=== PATIENT | male | born 1975 | race Caucasian/White ===

== ENCOUNTER 2019-02-10 08:59 | Inpatient (IN) | payer BC ==
[2019-02-10 09:38] VITALS: BMI 24.5
--- NOTE | 2019-02-10 10:49 | HP ---
"CIWA Score Nausea/Vomitin-Int. Nausea w/Dry Heave Muscle Tremors: 4-Moderate,w/Arms Extend Anxiety: 0-No Anxiety, at Ease Agitation: 2 Paroxysmal Sweats: 2 Orientation: 0-Oriented Tacttile Disturbances: 0-None Auditory Disturbances: 0-None Visual Disturbances: 0-None Headache: 0-None Present CIWA-Ar Total Score: 12 - Admission Criteria OASAS Guidelines: Admission for Medically Managed Detox: Requires at least one of the followin. CIWA greater than 12 2. Seizures within the past 24 hours 3. Delirium tremens within the past 24 hours 4. Hallucinations within the past 24 hours 5. Acute intervention needed for co occurring medical disorder 6. Acute intervention needed for co occurring psychiatric disorder 7. Severe withdrawal that cannot be handled at a lower level of care (continued vomiting, continued diarrhea, abnormal vital signs) requiring intravenous medication and/or fluids 8. Admission ROS [facility] Allergies/Adverse Reactions: Allergies Allergy/AdvReac Type Severity Reaction Status Date / Time No Known Allergies Allergy Verified 02/10/19 10:19 History of Present Illness: Search Terms: christopher blanchard, 1975 Search Date: 02/10/2019 10:42:28 AM The Drug Utilization Report below displays all of the controlled substance prescriptions, if any, that your patient has filled in the last twelve months. The information displayed on this report is compiled from pharmacy submissions to the Department, and accurately reflects the information as submitted by the pharmacies. This report was requested by: Jerri Michelle | Reference #: [id number] Others' Prescriptions Patient Name: Christopher Blanchard Date: 1975 Address: [address] [place] [address] Sex: Male Rx Written Rx Dispensed Drug Quantity Days Supply Prescriber Name 02/03/2019 02/03/2019 clonazepam 1 mg tablet 60 30 Destiny Stewart Patient Name: Christopher Blanchard Date: 1975 Address: [place] [address] Sex: Male Rx Written Rx Dispensed Drug Quantity Days Supply Prescriber Name 11/07/2018 11/08/2018 chlordiazepoxide 25 mg capsule 8 2 John Paul Anthony (CHIDI) pt here requesting detox from etoh use , reports 1 liter of vodka /day since 2 years ago after [facility] removed his son (currently age 6 ) from his care , starts drinking in the mornings , current JULIO CESAR 0.111 , reports tremors if not drinking, withdrawal seizure 1 yr ago , + blackouts, + falls while intoxicated . On MMTP since 2 years ago , currently 90 mg qd , first age of use 28 , denies IVDU , OD x 1 . denies recent heroin use . tobacco : 1/2 ppd denies other illicits PMHX : htn PSHx : r elbow surgery in childhood , jaw frx 2018 PSych : depression . denies Si / Hi . Exam Limitations: Clinical Condition, Intoxication - Ebola screening Have you traveled outside of the country in the last 21 days: No Have you had contact with anyone from an Ebola affected area: No Have you been sick,other than usual withdrawal symptoms: No Do you have a fever: No - Review of Systems Constitutional: Loss of Appetite EENT: reports: Other (denies vision loss , denies dysphagia) Respiratory: reports: No Symptoms reported Cardiac: reports: No Symptoms Reported GI: reports: See HPI : reports: No Symptoms Reported Musculoskeletal: reports: No Symptoms Reported Integumentary: reports: No Symptoms Reported Neuro: reports: See HPI Endocrine: reports: No Symptoms Reported Psychiatric: reports: Orientated x3, Anxious Patient History - Patient Medical History Hx Asthma: Yes Hx Depression: Yes (On Wellbutrin) - Patient Surgical History Hx Orthopedic Surgery: Yes (Right elbow , jaw sx) - PPD History Previous Implant?: No Documented Results: Positive w/o proof - Smoking Cessation Smoking history: Current every day smoker Aproximately how many cigarettes per day: 10 Hx Chewing Tobacco Use: No Initiated information on smoking cessation: No - Substances Abused Alcohol Route: Oral Frequency: Daily Amount used: Vodka - 1 liter Age of first use: 16 Date of Last Use: 02/10/19 Family Disease History - Family Disease History Family History: Denies (unsure) Admission Physical Exam S - Vital Signs Vital Signs: Vital Signs - 24 hr 02/10/19 09:33 Temperature 98.4 F Pulse Rate 83 Respiratory 18 Rate Blood Pressure 155/84 - Physical General Appearance: Yes: Alcohol on Breath, Intoxicated HEENTM: Yes: EOMI, Hearing grossly Normal, Normocephalic, Normal Voice Respiratory: Yes: Chest Non-Tender, Lungs Clear, Normal Breath Sounds Neck: Yes: No masses,lesions,Nodules, Trachea in good position Cardiology: Yes: Regular Rhythm, Regular Rate, S1, S2, Tachycardia Abdominal: Yes: Non Tender, Soft Back: Yes: Normal Inspection Musculoskeletal: Yes: full range of Motion, Gait Steady Extremities: Yes: Non-Tender, Tremors Neurological: Yes: Fully Oriented, Alert, Motor Strength 5/5 Integumentary: Yes: Dry - Diagnostic (1) Alcohol intoxication Current Visit: Yes Status: Acute Qualifiers: Complication of substance-induced condition: uncomplicated Qualified Code(s ): F10.920 - Alcohol use, unspecified with intoxication, uncomplicated (2) Alcohol abuse Current Visit: Yes Status: Acute (3) Opioid dependence on agonist therapy Current Visit: Yes Status: Chronic (4) Nicotine dependence Current Visit: Yes Status: Chronic Qualifiers: Nicotine product type: cigarettes BHS Breath Alcohol Content Breath Alcohol Content: 0.111 Urine Drug Screen - Results Drug Screen Negative: No Urine Drug Screen Results: BZO-Benzodiazepines, MTD-Methadone Inpatient Rehab Admission - Rehab Decision to Admit Inpatient rehab admission?: No"
[2019-02-10] MEDS ORDERED: ACETAMINOPHEN 325 MG TABLET (FP) PO PRN ×2 (10:56)
[2019-02-10] MEDS ORDERED: MAGNESIUM HYDROX 2400MG/30ML ORAL SUSPENSION 30 ML CUP PO PRN (10:56)
[2019-02-10] MEDS ORDERED: BISMUTH SUBSALICYLATE 524 MG/30 ML UD PO PRN (10:56)
[2019-02-10] MEDS ORDERED: IBUPROFEN 400 MG TABLET (FP) PO PRN (10:56)
[2019-02-10] MEDS ORDERED: MENTHOL/PHENOL 1 EACH UD MM PRN (10:56)
[2019-02-10] MEDS ORDERED: MAGNESIUM CITRATE 300 ML BOTTLE PO PRN (10:56)
[2019-02-10] MEDS ORDERED: MAG HYDROX/AL HYDROX/SIMETH 30 ML UNIT-DOSE CUP PO PRN (10:56)
[2019-02-10] MEDS ORDERED: NICOTINE POLACRILEX 2 MG GUM BUC PRN (10:56)
[2019-02-10] MEDS ORDERED: ALBUTEROL SO4 0.083% IH SOL 2.5 MG/3 ML VIAL.NEB. NEB PRN (10:58)
[2019-02-10] MEDS: chlordiazePOXIDE HCL 25 MG CAPSULE PO PRN ×2 (12:36→19:49)
[2019-02-10] MEDS ORDERED: cloNIDine HCL 0.1 MG TABLET PO ONE (13:15)
--- NOTE | 2019-02-10 13:19 | PN ---
[facility] Progress Note Note: PATIENT'S BP IN [facility] PATIENT [facility]: 155/84. PATIENT'S BP AT TIME OF ARRIVAL TO UNIT: 166/97. PATIENT REPORTS HISTORY OF ELEAVTED BP, BUT ONLY AT TIMES IN PAST WHILE IN WITHDRAWAL, PATIENT DENIES HISTORY OF HYPERTENSION ASIDE FROM WHEN IN WITHDRAWAL. PATIENT DENIES KNOWN HISTORY OF ANTI-HYPERTENSIVE MEDICATION IN PAST. PATIENT ASYMPTOMATIC, DENIES, CHEST PAIN AND PAIN RADIATING DOWN LEFT ARM OR INTO NECK. CLONIDINE, 0.1 MG PO BID ORDERED. Yessi COLMENARES NP
--- NOTE | 2019-02-10 15:02 | CONSULT ---
[facility] Psychiatric Consult - Data Date of interview: 02/10/19 Admission source: [facility] Identifying data: First admission to [facility] for this 43 y/o male self-referred for detoxification (opioid, alcohol). 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 Substance Abuse History: Confirmed by the patient in this interview. Details in current [facility] report : Smoking history: Current every day smoker. Aproximately how many cigarettes per day: 10. Hx Chewing Tobacco Use: No. Initiated information on smoking cessation: Yes. - Substances Abused. Alcohol. Route : Oral. Frequency: Daily. Amount used: Vodka - 1 liter. Age of first use: 16. Date of Last Use: 02/10/19 Medical History: Remarkable for past orthosurgery for fracture of left lower mandible and right elbow. Psychiatric History: No reported history of psychiatric hospitalizations. Patient is currently on methadone maintenance (90 mg/day) at the [facility] MMTP program in the [place]. Mr Dickerson is also seeing a private psychiatrist to address depression + anxiety. Prescribed wellbutrin XL 150 mg/ day + clonazepam (dose not recalled). Patient denies history of suicide attempts. Physical/Sexual Abuse/Trauma History: Stressors : loss of child's custody (son was removed by [facility]), poverty, lack of vocational skills and addictions. Additional Comment: Urine Drug Screen Results: BZO-Benzodiazepines, MTD- Methadone. Noted. Mental Status Exam - Mental Status Exam Alert and Oriented to: Time, Place, Person Cognitive Function: Good Patient Appearance: Well Groomed (obese) Mood: Withdrawn Affect: Mood Congruent, Constricted Patient Behavior: Fatigued, Appropriate, Cooperative Speech Pattern: Clear (bilingual) Voice Loudness: Normal Thought Process: Goal Oriented Thought Disorder: Not Present Hallucinations: Denies Suicidal Ideation: Denies Homicidal Ideation: Denies Insight/Judgement: Poor Sleep: Well Appetite: Good Muscle strength/Tone: Normal Gait/Station: Normal Psychiatric Findings - Problem List (Garden 1, 2,3) (1) Opioid dependence on agonist therapy Current Visit: Yes Status: Chronic (2) Alcohol dependence Current Visit: Yes Status: Chronic (3) Nicotine dependence Current Visit: Yes Status: Chronic Qualifiers: Nicotine product type: cigarettes (4) Substance induced mood disorder Current Visit: Yes Status: Chronic (5) History of depression Current Visit: Yes Status: Chronic Comment: On medications. - Initial Treatment Plan Initial Treatment Plan: Psychoeducation. Sleep hygiene. Detoxification in progress. Support. Wellbutrin XL 150 mg po daily (patient's specific request). Side effects/benefits discussed with the patient. Consent (verbal) granted to MD. Garcia.
[2019-02-10] MEDS: chlordiazePOXIDE HCL 25 MG CAPSULE PO SCH ×2 (17:11→22:15)
[2019-02-10] MEDS: THIAMINE HCL 100 MG TABLET (FP) PO SCH (22:15)
[2019-02-10] MEDS: cloNIDine HCL 0.1 MG TABLET PO SCH (22:15)
[2019-02-10] MEDS: MELATONIN 5 MG TABLETS PO PRN (22:15)
[2019-02-11] MEDS ORDERED: METHADONE HCL 40 MG DISPERSABLE TABLET ONE (04:47)
[2019-02-11] MEDS ORDERED: METHADONE HCL 10 MG TABLET ONE (04:47)
[2019-02-11] MEDS: METHADONE 80 MG, METHADONE 10 MG PO SCH (05:05)
[2019-02-11] MEDS: chlordiazePOXIDE HCL 25 MG CAPSULE PO SCH ×2 (05:06→10:15)
[2019-02-11] MEDS ORDERED: METHADONE HCL 10 MG TABLET PO SCH (06:00)
[2019-02-11] MEDS: PRENATAL VITAMINS W/ FOLIC ACID TABLET (FP) PO SCH (10:14)
[2019-02-11] MEDS: cloNIDine HCL 0.1 MG TABLET PO SCH ×2 (10:14→22:07)
[2019-02-11 10:57] LABS: ALBUMIN 4.7 g/dl (3.4-5.0); ALK PHOS 198 U/L (45-117); ANION GAP 11 MMOL/L (8-16); BILIRUBIN,TOTAL 3.1 mg/dL (0.2-1); BLOOD UREA NITROGEN 16 mg/dL (7-18); CHLORIDE 97 mmol/L (98-107); CO2 27 mmol/L (21-32); GLUCOSE,RANDOM 110 mg/dL (74-106); POTASSIUM 4.4 mmol/L (3.5-5.1); SGOT/AST 286 U/L (15-37); SGPT/ALT 262 U/L (13-61); SODIUM 136 mmol/L (136-145); TOT PROT 8.1 g/dl (6.4-8.2)
[2019-02-11 11:18] LABS: HEMATOCRIT 38.6 % (35.4-49); HEMOGLOBIN 13.3 GM/dL (11.7-16.9); MCH 32.6 pg (25.7-33.7); MCHC 34.4 g/dl (32.0-35.9); MEAN CELL VOLUME 94.9 fl (80-96); MEAN PLT VOLUME 8.1 fl (7.5-11.1); PLATELET COUNT 213 K/MM3 (134-434); RBC 4.07 M/mm3 (4.00-5.60); RDW 13.3 % (11.9-15.9); WHITE BLOOD COUNT 3.4 K/mm3 (4.0-10.0)
[2019-02-11] MEDS ORDERED: LORazepam 1 MG TABLET PO PRN (15:19)
--- NOTE | 2019-02-11 15:24 | PN ---
S CIWA - CIWA Score Nausea/Vomitin Muscle Tremors: 3 Anxiety: 0-No Anxiety, at Ease Agitation: 0-Normal Activity Paroxysmal Sweats: 3 Orientation: 0-Oriented Tacttile Disturbances: 1-Very Mild Itch/Numbness Auditory Disturbances: 2-Mild Harshness/Frighten Visual Disturbances: 2-Mild Sensitivity Headache: 0-None Present CIWA-Ar Total Score: 14 S Progress Note (SOAP) Subjective: Tremors, Sweating, Body Aches. Objective: PATIENT A & O X 3, OBSERVED AMBULATING ON UNIT. IN NO ACUTE DISTRESS. 02/11/19 15:17 Vital Signs Temperature 98.5 F 02/11/19 13:39 Pulse Rate 69 02/11/19 13:39 Respiratory Rate 18 02/11/19 13:39 Blood Pressure 124/79 02/11/19 13:39 O2 Sat by Pulse Oximetry (%) Laboratory Tests 02/11/19 02/11/19 02/11/19 05:40 05:40 05:40 WBC 3.4 L RBC 4.07 Hgb 13.3 Hct 38.6 MCV 94.9 MCH 32.6 MCHC 34.4 RDW 13.3 Plt Count 213 MPV 8.1 Sodium 136 Potassium 4.4 Chloride 97 L Carbon Dioxide 27 Anion Gap 11 BUN 16 Creatinine 1.0 Creat Clearance w eGFR 81.55 Random Glucose 110 H Calcium 9.0 Total Bilirubin 3.1 H AST 286 H ALT 262 H Alkaline Phosphatase 198 H Total Protein 8.1 Albumin 4.7 RPR Titer Nonreactive LABS NOTED. Assessment: 02/11/19 15:23 WITHDRAWAL SYMPTOMS. ELEVATED LIVER ENZYMES. LEUKOPENIA. 02/11/19 15:24 Plan: CONTINUE DETOX. INCREASE DAILY PO FLUID INTAKE. CHANGE FROM LIBRIUM DETOX PROTOCOL TO ATIVAN DETOX PROTOCOL DUE TO SIGNIFICANTLY ELEVATED ADMISSION LIVER ENZYMES. HFP ORDERED FOR 02/13/2019.
[2019-02-11] MEDS ORDERED: chlordiazePOXIDE HCL 25 MG CAPSULE PO SCH (17:00)
[2019-02-11] MEDS: LORazepam 1 MG TABLET PO SCH ×2 (17:42→22:07)
[2019-02-11] MEDS: MELATONIN 5 MG TABLETS PO PRN (22:07)
[2019-02-11] MEDS: THIAMINE HCL 100 MG TABLET (FP) PO SCH (22:07)
[2019-02-12] MEDS ORDERED: METHADONE HCL 40 MG DISPERSABLE TABLET ONE (03:39)
[2019-02-12] MEDS ORDERED: METHADONE HCL 10 MG TABLET ONE (03:39)
[2019-02-12] MEDS: METHADONE 80 MG, METHADONE 10 MG PO SCH (05:38)
[2019-02-12] MEDS: LORazepam 1 MG TABLET PO SCH ×2 (05:38→10:05)
[2019-02-12] MEDS: PRENATAL VITAMINS W/ FOLIC ACID TABLET (FP) PO SCH (10:04)
[2019-02-12] MEDS: cloNIDine HCL 0.1 MG TABLET PO SCH ×2 (10:04→22:02)
--- NOTE | 2019-02-12 11:22 | PN ---
S CIWA - CIWA Score Nausea/Vomitin-No Nausea/No Vomiting Muscle Tremors: 2 Anxiety: 2 Agitation: 1-Slight > Activity Paroxysmal Sweats: 1-Minimal Palms Moist Orientation: 2-Disoriented Date<2 days Tacttile Disturbances: 0-None Auditory Disturbances: 0-None Visual Disturbances: 0-None Headache: 1-Very Mild CIWA-Ar Total Score: 9 S Progress Note (SOAP) Subjective: doing well social with peers in day room patient is prescribed with klonopin for anxiety patient preferring return to klonopin provider la[facility] medical and mental issues Objective: 02/12/19 11:23 Vital Signs Temperature 96.7 F L 02/12/19 09:56 Pulse Rate 114 H 02/12/19 09:56 Respiratory Rate 18 02/12/19 09:56 Blood Pressure 99/69 02/12/19 09:56 O2 Sat by Pulse Oximetry (%) Laboratory Last Values WBC 3.4 K/mm3 (4.0-10.0) L 02/11/19 05:40 RBC 4.07 M/mm3 (4.00-5.60) 02/11/19 05:40 Hgb 13.3 GM/dL (11.7-16.9) 02/11/19 05:40 Hct 38.6 % (35.4-49) 02/11/19 05:40 MCV 94.9 fl (80-96) 02/11/19 05:40 MCH 32.6 pg (25.7-33.7) 02/11/19 05:40 MCHC 34.4 g/dl (32.0-35.9) 02/11/19 05:40 RDW 13.3 % (11.9-15.9) 02/11/19 05:40 Plt Count 213 K/MM3 (134-434) 02/11/19 05:40 MPV 8.1 fl (7.5-11.1) 02/11/19 05:40 Sodium 136 mmol/L (136-145) 02/11/19 05:40 Potassium 4.4 mmol/L (3.5-5.1) 02/11/19 05:40 Chloride 97 mmol/L (98-107) L 02/11/19 05:40 Carbon Dioxide 27 mmol/L (21-32) 02/11/19 05:40 Anion Gap 11 MMOL/L (8-16) 02/11/19 05:40 BUN 16 mg/dL (7-18) 02/11/19 05:40 Creatinine 1.0 mg/dL (0.55-1.3) 02/11/19 05:40 Creat Clearance w eGFR 81.55 (>60) 02/11/19 05:40 Random Glucose 110 mg/dL (74-106) H 02/11/19 05:40 Calcium 9.0 mg/dL (8.5-10.1) 02/11/19 05:40 Total Bilirubin 3.1 mg/dL (0.2-1) H 02/11/19 05:40 AST 286 U/L (15-37) H 02/11/19 05:40 ALT 262 U/L (13-61) H 02/11/19 05:40 Alkaline Phosphatase 198 U/L (45-117) H 02/11/19 05:40 Total Protein 8.1 g/dl (6.4-8.2) 02/11/19 05:40 Albumin 4.7 g/dl (3.4-5.0) 02/11/19 05:40 RPR Titer Nonreactive (NONREACTIVE) 02/11/19 05:40 02/12/19 11:24 lab oted ast elevation continue ativan alcohol detox regimen repeat ast 02/13/19 02/12/19 11:25 discuss alcohol misuse related liver insults Assessment: 02/12/19 11:24 alcohol withdrawal sx 02/12/19 11:25 ast elevation Plan: continue detox repeat ast continue ativan
[2019-02-12] MEDS ORDERED: LORazepam 0.5 MG TABLET PO PRN (15:19)
[2019-02-12] MEDS ORDERED: chlordiazePOXIDE HCL 10 MG CAPSULE PO PRN (17:00)
[2019-02-12] MEDS ORDERED: chlordiazePOXIDE HCL 10 MG CAPSULE PO SCH (17:00)
[2019-02-12] MEDS: LORazepam 0.5 MG TABLET PO SCH ×2 (17:17→22:02)
[2019-02-12] MEDS: THIAMINE HCL 100 MG TABLET (FP) PO SCH (22:02)
[2019-02-12] MEDS: MELATONIN 5 MG TABLETS PO PRN (22:03)
[2019-02-13] MEDS ORDERED: METHADONE HCL 40 MG DISPERSABLE TABLET ONE (04:42)
[2019-02-13] MEDS ORDERED: METHADONE HCL 10 MG TABLET ONE (04:42)
[2019-02-13] MEDS: METHADONE 80 MG, METHADONE 10 MG PO SCH (05:02)
[2019-02-13] MEDS: LORazepam 0.5 MG TABLET PO SCH (05:02)
--- NOTE | 2019-02-13 08:34 | DS ---
[facility] Detox Discharge Summary Admission Date: 02/10/19 Discharge Date: 02/13/19 - History Present History: Alcohol Dependence Additional Comments: 43 years old male admitted on 02/10/19 for alcohol withdrawal stabilizaion completed detox regimen aftercare [facility] Pertinent Past History: encourage the patient to keep medication list in wallet bring in medication list and bottles of medication to follow up appointment - Physical Exam Results Vital Signs: Vital Signs Temperature 97.3 F L 02/13/19 05:50 Pulse Rate 63 02/13/19 05:50 Respiratory Rate 18 02/13/19 06:28 Blood Pressure 106/65 02/13/19 05:50 O2 Sat by Pulse Oximetry (%) Pertinent Admission Physical Exam Findings: alcohol withdrawal sx Laboratory Last Values WBC 3.4 K/mm3 (4.0-10.0) L 02/11/19 05:40 RBC 4.07 M/mm3 (4.00-5.60) 02/11/19 05:40 Hgb 13.3 GM/dL (11.7-16.9) 02/11/19 05:40 Hct 38.6 % (35.4-49) 02/11/19 05:40 MCV 94.9 fl (80-96) 02/11/19 05:40 MCH 32.6 pg (25.7-33.7) 02/11/19 05:40 MCHC 34.4 g/dl (32.0-35.9) 02/11/19 05:40 RDW 13.3 % (11.9-15.9) 02/11/19 05:40 Plt Count 213 K/MM3 (134-434) 02/11/19 05:40 MPV 8.1 fl (7.5-11.1) 02/11/19 05:40 Sodium 136 mmol/L (136-145) 02/11/19 05:40 Potassium 4.4 mmol/L (3.5-5.1) 02/11/19 05:40 Chloride 97 mmol/L (98-107) L 02/11/19 05:40 Carbon Dioxide 27 mmol/L (21-32) 02/11/19 05:40 Anion Gap 11 MMOL/L (8-16) 02/11/19 05:40 BUN 16 mg/dL (7-18) 02/11/19 05:40 Creatinine 1.0 mg/dL (0.55-1.3) 02/11/19 05:40 Creat Clearance w eGFR 81.55 (>60) 02/11/19 05:40 Random Glucose 110 mg/dL (74-106) H 02/11/19 05:40 Calcium 9.0 mg/dL (8.5-10.1) 02/11/19 05:40 Total Bilirubin 3.1 mg/dL (0.2-1) H 02/11/19 05:40 AST 286 U/L (15-37) H 02/11/19 05:40 ALT 262 U/L (13-61) H 02/11/19 05:40 Alkaline Phosphatase 198 U/L (45-117) H 02/11/19 05:40 Total Protein 8.1 g/dl (6.4-8.2) 02/11/19 05:40 Albumin 4.7 g/dl (3.4-5.0) 02/11/19 05:40 RPR Titer Nonreactive (NONREACTIVE) 02/11/19 05:40 lab noted strong recommend the patient bring in lab result to [facility] provider follow up with liver enzyme elevation health teaching on alcohol related ast elevation and risks involved - Treatment Hospital Course: Detox Protocol Followed, Detoxed Safely, Responded well, Discharged Condition Good, Rehab Referral Accepted Patient has Accepted a Rehab Referral to: [facility] - Medication Discharge Medications: Ambulatory Orders Albuterol Sulfate Inhaler - [Ventolin HFA Inhaler -] 1 - 2 inh PO Q4H 03/22/18 Bupropion HCl [Wellbutrin Xl -] 150 mg PO DAILY 02/10/19 clonazePAM [Klonopin -] 0.5 mg PO DAILY 02/10/19 - AMA Did Patient Leave Against Medical Advice: No
[2019-02-13 09:17] VITALS: BP 107/69; PULSE 74; TEMP 98.6
[2019-02-13] MEDS ORDERED: chlordiazePOXIDE HCL 10 MG CAPSULE PO SCH (17:00)
== END 2019-02-13 09:17 | disposition home or self-care (01) | DRG 773 ==
LOC: YASAS 08:59 → Y3N 11:13
PROVIDERS: ADMIT Surgery; ATTEND Surgery
PROC: HZ2ZZZZ Detoxification Services for Substance Abuse Treatment (ICD-10-PCS; principal; 2019-02-09)
DX: F10.230 Alcohol dependence with withdrawal, uncomplicated (principal); F11.20 Opioid dependence, uncomplicated; F17.210 Nicotine dependence, cigarettes, uncomplicated; F19.24 Other psychoactive substance dependence with psychoactive substance-induced mood disorder; F32.9 Major depressive disorder, single episode, unspecified; R94.5 Abnormal results of liver function studies; R74.8 Abnormal levels of other serum enzymes; D72.819 Decreased white blood cell count, unspecified; Z59.0 Homelessness
CPT/HCPCS: 36415; 71045-TC-FY; 80053; 85027; 86593; J0735

== ENCOUNTER 2019-07-10 11:15 | Inpatient (IN) | payer BC ==
[2019-07-10 14:38] VITALS: BMI 25.7
--- NOTE | 2019-07-10 16:26 | HP ---
CIWA Score Nausea/Vomitin-Int. Nausea w/Dry Heave Muscle Tremors: 3 Anxiety: 3 Agitation: 2 Paroxysmal Sweats: 2 Orientation: 0-Oriented Tacttile Disturbances: 0-None Auditory Disturbances: 0-None Visual Disturbances: 0-None Headache: 0-None Present CIWA-Ar Total Score: 14 - Admission Criteria OASAS Guidelines: Admission for Medically Managed Detox: Requires at least one of the followin. CIWA greater than 12 2. Seizures within the past 24 hours 3. Delirium tremens within the past 24 hours 4. Hallucinations within the past 24 hours 5. Acute intervention needed for co occurring medical disorder 6. Acute intervention needed for co occurring psychiatric disorder 7. Severe withdrawal that cannot be handled at a lower level of care (continued vomiting, continued diarrhea, abnormal vital signs) requiring intravenous medication and/or fluids 8. Admission ROS [facility] - HPI Allergies/Adverse Reactions: Allergies Allergy/AdvReac Type Severity Reaction Status Date / Time No Known Allergies Allergy Verified 07/10/19 14:22 History of Present Illness: 43 yo with asthma, h/o anxiety and panic attacks, ran out of money yesterday- could not get alcohol- went into withdrawal with nausea/vomiting and the shakes - went to [facility]-did not get any meds- referred here for further management. On methadone MAT 90mg/day. h/o pos PPD, h/o INH for 9 months alcohol- 1 liter vodka/day, last seizure a few months ago, no DT's Last use of IV heroin- wednesday, on methadone Benzo- gets 2mg Klonopin a day from PCP for anxiety/panic ambien- for sleep, DUR- klonopin/ambien Utox: opioids, MTD - Ebola screening Have you traveled outside of the country in the last 21 days: No Have you had contact with anyone from an Ebola affected area: No - Review of Systems Constitutional: Other (nausea and vomiting) EENT: reports: Other Respiratory: reports: No Symptoms reported Cardiac: reports: No Symptoms Reported GI: reports: Nausea, Vomiting : reports: No Symptoms Reported Musculoskeletal: reports: No Symptoms Reported Integumentary: reports: No Symptoms Reported Neuro: reports: No Symptoms reported Endocrine: reports: No Symptoms Reported Hematology: reports: No Symptoms Reported Psychiatric: reports: No Sypmtoms Reported Patient History - Patient Medical History Hx Asthma: Yes Hx Depression: Yes (On Wellbutrin) Other Medical History: anxiety/panic attacks - Patient Surgical History Hx Orthopedic Surgery: Yes (Right elbow , jaw sx) - Smoking Cessation Smoking history: Current every day smoker Aproximately how many cigarettes per day: 10 Hx Chewing Tobacco Use: No Initiated information on smoking cessation: Yes 'Breaking Loose' booklet given: 07/10/19 - Substance & Tx. History Substance Use Type: Alcohol, Tranquilizers - Substances abused Alcohol Substance route: Oral Frequency: Daily Amount used: 1 liter of vodka Age of first use: 15 Date of last use: 07/10/19 Family Disease History - Family Disease History Family Disease History: Other: Mother (alcohol) Admission Physical Exam BHS - Vital Signs Vital Signs: Vital Signs - 24 hr 07/10/19 14:21 Temperature 99.2 F Pulse Rate 89 Respiratory 20 Rate Blood Pressure 165/100 - Physical General Appearance: Yes: Within Normal Limits, Moderate Distress HEENTM: Yes: Within Normal Limits Respiratory: Yes: Within Normal Limits Neck: Yes: Within Normal Limits Cardiology: Yes: Within Normal Limits Abdominal: Yes: Within Normal Limits Back: Yes: Within Normal Limits Musculoskeletal: Yes: Within Normal Limits Extremities: Yes: Within Normal Limits Neurological: Yes: Within Normal Limits Integumentary: Yes: Track Teran Inpatient Rehab Admission - Rehab Decision to Admit Inpatient rehab admission?: No
[2019-07-10] MEDS ORDERED: chlordiazePOXIDE HCL 25 MG CAPSULE PO PRN (16:33)
[2019-07-10] MEDS ORDERED: MAGNESIUM HYDROX 2400MG/30ML ORAL SUSPENSION 30 ML CUP PO PRN (16:34)
[2019-07-10] MEDS ORDERED: ONDANSETRON *ODT* 4 MG TABLET SL PRN (16:34)
[2019-07-10] MEDS ORDERED: IBUPROFEN 400 MG TABLET (FP) PO PRN (16:34)
[2019-07-10] MEDS ORDERED: METHOCARBAMOL 500 MG TABLET PO PRN (16:34)
[2019-07-10] MEDS ORDERED: ACETAMINOPHEN 325 MG TABLET (FP) PO PRN ×2 (16:34)
[2019-07-10] MEDS ORDERED: MAGNESIUM CITRATE 300 ML BOTTLE PO PRN (16:34)
[2019-07-10] MEDS ORDERED: BISMUTH SUBSALICYLATE 524 MG/30 ML UD PO PRN (16:34)
[2019-07-10] MEDS ORDERED: MELATONIN 5 MG TABLETS PO PRN (16:34)
[2019-07-10] MEDS ORDERED: MAG HYDROX/AL HYDROX/SIMETH 30 ML UNIT-DOSE CUP PO PRN (16:34)
[2019-07-10] MEDS ORDERED: MENTHOL/PHENOL 1 EACH UD MM PRN (16:34)
[2019-07-10] MEDS ORDERED: hydrOXYzine PAMOATE 25 MG CAPSULE (FP) PO PRN (16:34)
[2019-07-10] MEDS ORDERED: NICOTINE POLACRILEX 2 MG GUM BUC PRN (16:34)
[2019-07-10] MEDS ORDERED: cloNIDine HCL 0.1 MG TABLET PO PRN (16:35)
[2019-07-10] MEDS ORDERED: ALBUTEROL SO4 8 GM HFA INHALER IH PRN (16:36)
[2019-07-10] MEDS ORDERED: METHADONE HCL 10 MG TABLET PO ONE (16:38)
[2019-07-10] MEDS ORDERED: METHADONE 80 MG, METHADONE 10 MG PO ONE (18:00)
[2019-07-10] MEDS ORDERED: chlordiazePOXIDE HCL 25 MG CAPSULE PO ONE (18:00)
[2019-07-10] MEDS ORDERED: METHADONE HCL 10 MG TABLET ONE (18:13)
[2019-07-10] MEDS ORDERED: METHADONE HCL 40 MG DISPERSABLE TABLET ONE (18:14)
[2019-07-10] MEDS: THIAMINE HCL 100 MG TABLET (FP) PO SCH (22:27)
[2019-07-10] MEDS: chlordiazePOXIDE HCL 25 MG CAPSULE PO SCH (22:27)
[2019-07-11] MEDS ORDERED: METHADONE HCL 10 MG TABLET ONE (04:42)
[2019-07-11] MEDS ORDERED: METHADONE HCL 40 MG DISPERSABLE TABLET ONE (04:43)
[2019-07-11] MEDS: METHADONE 80 MG, METHADONE 10 MG PO SCH (05:17)
[2019-07-11] MEDS: chlordiazePOXIDE HCL 25 MG CAPSULE PO SCH ×4 (05:17→22:23)
[2019-07-11] MEDS ORDERED: METHADONE HCL 10 MG TABLET PO SCH (06:00)
[2019-07-11] MEDS ORDERED: NICOTINE 14 MG/24 HOURS TOPICAL PATCH TD SCH (10:00)
[2019-07-11] MEDS ORDERED: busPIRone HCL 10 MG TABLET (FP) PO SCH (10:00)
[2019-07-11] MEDS ORDERED: PRENATAL VITAMINS W/ FOLIC ACID TABLET (FP) PO SCH (10:00)
[2019-07-11 10:59] LABS: ALBUMIN 4.4 g/dl (3.4-5.0); BILIRUBIN,TOTAL 4.4 mg/dL (0.2-1); CALCIUM 9.8 mg/dL (8.5-10.1); CREATININE 0.8 mg/dL (0.55-1.3); POTASSIUM 3.9 mmol/L (3.5-5.1); TOT PROT 7.7 g/dl (6.4-8.2)
[2019-07-11 11:06] LABS: HEMATOCRIT 43.4 % (35.4-49); HEMOGLOBIN 14.4 GM/dL (11.7-16.9); MCH 30.6 pg (25.7-33.7); MCHC 33.3 g/dl (32.0-35.9); MEAN CELL VOLUME 91.9 fl (80-96); PLATELET COUNT 194 K/MM3 (134-434); RBC 4.73 M/mm3 (4.00-5.60); RDW 13.2 % (11.9-15.9); WHITE BLOOD COUNT 3.2 K/mm3 (4.0-10.0)
--- NOTE | 2019-07-11 11:18 | PN ---
S CIWA - CIWA Score Nausea/Vomitin-No Nausea/No Vomiting Muscle Tremors: 4-Moderate,w/Arms Extend Anxiety: 4-Mod. Anxious/Guarded Agitation: 4-Moderately Restless Paroxysmal Sweats: 3 Orientation: 0-Oriented Tacttile Disturbances: 0-None Auditory Disturbances: 0-None Visual Disturbances: 0-None Headache: 0-None Present CIWA-Ar Total Score: 15 BHS Progress Note (SOAP) Subjective: nausea sweats shakes chills interrupted sleep body aches Objective: 07/11/19 11:17 Vital Signs Temperature 97.7 F 07/11/19 09:35 Pulse Rate 75 07/11/19 09:35 Respiratory Rate 18 07/11/19 09:35 Blood Pressure 165/105 H 07/11/19 09:35 O2 Sat by Pulse Oximetry (%) Laboratory Tests 07/11/19 07/11/19 07:50 07:50 WBC 3.2 L RBC 4.73 Hgb 14.4 Hct 43.4 MCV 91.9 MCH 30.6 MCHC 33.3 RDW 13.2 Plt Count 194 MPV 8.0 Sodium 137 Potassium 3.9 Chloride 96 L Carbon Dioxide 32 Anion Gap 9 BUN 16.0 Creatinine 0.8 Est GFR (CKD-EPI)AfAm 126.81 Est GFR (CKD-EPI)NonAf 109.41 Random Glucose 89 Calcium 9.8 Total Bilirubin 4.4 H AST 185 H ALT 199 H Alkaline Phosphatase 201 H Total Protein 7.7 Albumin 4.4 labs noted elevated BP elevated ast/alt aaox3 ambulating no acute distress Assessment: 07/11/19 11:18 withdrawal sx Plan: continue detox increase fluids d/c tylenol repeats labs zofran prn clonidine 0.1 mg prn
--- NOTE | 2019-07-11 13:37 | EKG ---
Test Reason : Blood Pressure : / mmHG Vent. Rate : 085 BPM Atrial Rate : 085 BPM P-R Int : 140 ms QRS Dur : 080 ms QT Int : 384 ms P-R-T Axes : 071 082 057 degrees QTc Int : 456 ms NORMAL SINUS RHYTHM POSSIBLE LEFT ATRIAL ENLARGEMENT BORDERLINE ECG NO PREVIOUS ECGS AVAILABLE Confirmed by MD ABBIE, VANGIE ([id number]) on 07/11/2019 1:36:42 PM Referred By: Confirmed By:VANGIE LEIVA MD
[2019-07-11] MEDS ORDERED: RANITIDINE HCL 150 MG TABLET (FP) PO SCH (22:00)
[2019-07-11] MEDS: THIAMINE HCL 100 MG TABLET (FP) PO SCH (22:23)
[2019-07-12] MEDS ORDERED: METHADONE HCL 10 MG TABLET ONE (04:34)
[2019-07-12] MEDS ORDERED: METHADONE HCL 40 MG DISPERSABLE TABLET ONE (04:34)
[2019-07-12] MEDS ORDERED: chlordiazePOXIDE HCL 25 MG CAPSULE PO SCH (05:00)
[2019-07-12] MEDS: METHADONE 80 MG, METHADONE 10 MG PO SCH (05:22)
[2019-07-12 08:02] VITALS: BP 135/93; PULSE 55; TEMP 97.2
--- NOTE | 2019-07-12 09:15 | PN ---
S Progress Note Note: pt was admitted in withdrawals c/o of withdrawals sx and aggressive symptomatic management attempted however, pt in spite of extensive motivational counseling regarding DT's, seizures, relapse and or loss, pt chose to sign out AMA.
--- NOTE | 2019-07-12 09:24 | DS ---
[facility] Detox Discharge Summary Admission Date: 07/10/19 - History Present History: Alcohol Dependence, Opioid Dependence - Physical Exam Results Vital Signs: Vital Signs Temperature 97.2 F L 07/12/19 08:01 Pulse Rate 55 L 07/12/19 08:01 Respiratory Rate 18 07/12/19 08:01 Blood Pressure 135/93 07/12/19 08:01 O2 Sat by Pulse Oximetry (%) Pertinent Admission Physical Exam Findings: pt arrived in withdrawal Laboratory Tests 07/11/19 07/11/19 07/11/19 07:50 07:50 07:50 WBC 3.2 L RBC 4.73 Hgb 14.4 Hct 43.4 MCV 91.9 MCH 30.6 MCHC 33.3 RDW 13.2 Plt Count 194 MPV 8.0 Sodium 137 Potassium 3.9 Chloride 96 L Carbon Dioxide 32 Anion Gap 9 BUN 16.0 Creatinine 0.8 Est GFR (CKD-EPI)AfAm 126.81 Est GFR (CKD-EPI)NonAf 109.41 Random Glucose 89 Calcium 9.8 Total Bilirubin 4.4 H AST 185 H ALT 199 H Alkaline Phosphatase 201 H Total Protein 7.7 Albumin 4.4 RPR Titer Nonreactive pt made aware of his elevated liver enzymes. a repeated lab was ordered but pt chose to sign out today AMA. copy of report provided to pt and advised to see his PCP and or go to ED if - Treatment Hospital Course: Discharged Condition Good Patient has Accepted a Rehab Referral to: declined rehab; referral provided - Medication Discharge Medications: Ambulatory Orders Albuterol Sulfate Inhaler - [Ventolin HFA Inhaler -] 1 - 2 inh PO Q4H PRN Bupropion HCl [Wellbutrin Xl -] 150 mg PO DAILY 02/10/19 Buspirone HCl [Buspar -] 10 mg PO DAILY 07/10/19 Ranitidine HCl [Zantac] 150 mg PO DAILY 07/10/19 - Diagnosis (1) Alcohol abuse Current Visit: Yes Status: Chronic (2) Alcohol intoxication Current Visit: Yes Status: Chronic Qualifiers: Complication of substance-induced condition: uncomplicated Qualified Code(s ): F10.920 - Alcohol use, unspecified with intoxication, uncomplicated (3) Elevated liver enzymes Current Visit: No Status: Acute (4) Alcohol dependence Current Visit: Yes Status: Chronic Qualifiers: Substance use status: uncomplicated Qualified Code(s): F10.20 - Alcohol dependence, uncomplicated (5) History of depression Current Visit: No Status: Chronic (6) Nicotine dependence Current Visit: Yes Status: Chronic Qualifiers: Nicotine product type: cigarettes Substance use status: uncomplicated Qualified Code(s): F17.210 - Nicotine dependence, cigarettes, uncomplicated (7) Opioid dependence on agonist therapy Current Visit: No Status: Chronic (8) Substance induced mood disorder Current Visit: No Status: Chronic - AMA Did Patient Leave Against Medical Advice: Yes
[2019-07-13] MEDS ORDERED: chlordiazePOXIDE HCL 10 MG CAPSULE PO PRN
[2019-07-13] MEDS ORDERED: chlordiazePOXIDE HCL 10 MG CAPSULE PO SCH (05:00)
[2019-07-14] MEDS ORDERED: chlordiazePOXIDE HCL 10 MG CAPSULE PO SCH (05:00)
[2019-07-15] MEDS ORDERED: chlordiazePOXIDE HCL 10 MG CAPSULE PO ONE (05:00)
== END 2019-07-12 09:13 | disposition left against medical advice (07) | DRG 770 ==
LOC: YASAS 11:15 → Y6N 17:35
PROVIDERS: ADMIT Surgery; ATTEND Surgery
PROC: HZ2ZZZZ Detoxification Services for Substance Abuse Treatment (ICD-10-PCS; principal; 2019-07-10)
DX: F10.230 Alcohol dependence with withdrawal, uncomplicated (principal); F10.220 Alcohol dependence with intoxication, uncomplicated; F11.20 Opioid dependence, uncomplicated; F17.210 Nicotine dependence, cigarettes, uncomplicated; F19.24 Other psychoactive substance dependence with psychoactive substance-induced mood disorder; R94.5 Abnormal results of liver function studies
CPT/HCPCS: 36415; 80053; 85027; 86593; 93005; 93010; J0735

== ENCOUNTER 2021-09-14 09:00 | Inpatient (IN) | payer BC ==
[2021-09-14 09:20] VITALS: BMI 24.8
[2021-09-14] MEDS ORDERED: METHOCARBAMOL 500 MG TABLET PO PRN (11:02)
[2021-09-14] MEDS ORDERED: MAGNESIUM CITRATE 300 ML BOTTLE PO PRN (11:02)
[2021-09-14] MEDS ORDERED: MAGNESIUM HYDROX 2400MG/30ML ORAL SUSPENSION 30 ML CUP PO PRN (11:02)
[2021-09-14] MEDS ORDERED: IBUPROFEN 400 MG TABLET (FP) PO PRN (11:02)
[2021-09-14] MEDS ORDERED: BISMUTH SUBSALICYLATE 524 MG/30 ML PO PRN (11:02)
[2021-09-14] MEDS ORDERED: MENTHOL/PHENOL 1 EACH UD MM PRN (11:02)
[2021-09-14] MEDS ORDERED: NICOTINE 10 MG CARTRIDGE (INHALER) IH PRN (11:02)
[2021-09-14] MEDS ORDERED: MAG HYDROX/AL HYDROX/SIMETH 30 ML UNIT-DOSE CUP PO PRN (11:02)
[2021-09-14] MEDS ORDERED: ONDANSETRON *ODT* 4 MG TABLET SL PRN (11:02)
[2021-09-14] MEDS ORDERED: ACETAMINOPHEN 325 MG TABLET (FP) PO PRN ×2 (11:02)
[2021-09-14] MEDS ORDERED: diazePAM 5 MG TABLET PO PRN (11:02)
[2021-09-14] MEDS ORDERED: diazePAM 5 MG TABLET ONE (11:47)
[2021-09-14] MEDS: diazePAM 5 MG TABLET PO SCH ×3 (11:50→22:38)
[2021-09-14] MEDS: BACITRACIN 15 GM TUBE TOPICAL OINTMENT TP SCH ×2 (12:30→22:38)
[2021-09-14] MEDS: hydrOXYzine PAMOATE 25 MG CAPSULE (FP) PO SCH ×3 (14:18→22:39)
[2021-09-14] MEDS: MELATONIN 5 MG TABLETS PO SCH (22:38)
[2021-09-14] MEDS: THIAMINE HCL 100 MG TABLET (FP) PO SCH (22:39)
[2021-09-15] MEDS: diazePAM 5 MG TABLET PO SCH ×4 (07:46→22:42)
[2021-09-15] MEDS: hydrOXYzine PAMOATE 25 MG CAPSULE (FP) PO SCH ×5 (07:46→22:42)
[2021-09-15] MEDS ORDERED: methaDONE HCL 10 MG TABLET PO SCH (09:00)
[2021-09-15] MEDS ORDERED: methaDONE 40 MG, methaDONE 10 MG PO ONE (09:15)
[2021-09-15] MEDS ORDERED: methaDONE HCL 10 MG TABLET ONE (09:40)
[2021-09-15] MEDS ORDERED: methaDONE HCL 40 MG DISPERSABLE TABLET ONE (09:41)
[2021-09-15] MEDS ORDERED: PRENATAL VITAMINS W/ FOLIC ACID TABLET (FP) PO SCH (10:00)
[2021-09-15] MEDS: BACITRACIN 15 GM TUBE TOPICAL OINTMENT TP SCH ×2 (10:21→22:44)
[2021-09-15 11:02] LABS: HEMOGLOBIN 13.2 GM/dL (11.7-16.9); MCH 27.4 pg (25.7-33.7); MCHC 32.3 g/dl (32.0-35.9); MEAN CELL VOLUME 84.9 fl (80-96); MEAN PLT VOLUME 7.3 fl (7.5-11.1); PLATELET COUNT 330 10^3/uL (134-434); RBC 4.83 M/mm3 (4.00-5.60); RDW 15.4 % (11.9-15.9); WHITE BLOOD COUNT 4.1 K/mm3 (4.0-10.0)
[2021-09-15 11:07] LABS: BLOOD UREA NITROGEN 10.8 mg/dL (7-18); CALCIUM 9.1 mg/dL (8.5-10.1)
[2021-09-15 11:10] LABS: CREATININE 0.7 mg/dL (0.55-1.3)
[2021-09-15 11:12] LABS: BILIRUBIN,TOTAL 0.7 mg/dL (0.2-1); TOT PROT 7.8 g/dl (6.4-8.2)
[2021-09-15 12:35] LABS: HIV INTERPRETATION NEGATIVE (NEGATIVE)
[2021-09-15 21:23] VITALS: BP 113/60; PULSE 57; TEMP 96.8
[2021-09-15] MEDS: MELATONIN 5 MG TABLETS PO SCH (22:42)
[2021-09-15] MEDS: THIAMINE HCL 100 MG TABLET (FP) PO SCH (22:42)
[2021-09-16] MEDS ORDERED: methaDONE HCL 40 MG DISPERSABLE TABLET ONE (04:35)
[2021-09-16] MEDS ORDERED: methaDONE HCL 10 MG TABLET ONE (04:35)
[2021-09-16] MEDS ORDERED: diazePAM 5 MG TABLET PO SCH (06:00)
[2021-09-16] MEDS ORDERED: methaDONE 40 MG, methaDONE 10 MG PO SCH (06:00)
[2021-09-16] MEDS: hydrOXYzine PAMOATE 25 MG CAPSULE (FP) PO SCH (07:34)
[2021-09-17] MEDS ORDERED: diazePAM 5 MG TABLET PO SCH (06:00)
[2021-09-18] MEDS ORDERED: diazePAM 5 MG TABLET PO ONE (06:00)
== END 2021-09-16 10:06 | disposition left against medical advice (07) | DRG 770 ==
LOC: YASAS 09:00 → Y3N 11:38
PROVIDERS: ADMIT Allergy & Immunology; ATTEND Allergy & Immunology
PROC: HZ2ZZZZ Detoxification Services for Substance Abuse Treatment (ICD-10-PCS; principal; 2021-09-14)
DX: F10.230 Alcohol dependence with withdrawal, uncomplicated (principal); F11.20 Opioid dependence, uncomplicated; F14.20 Cocaine dependence, uncomplicated; F17.210 Nicotine dependence, cigarettes, uncomplicated; L97.429 Non-pressure chronic ulcer of left heel and midfoot with unspecified severity; J45.909 Unspecified asthma, uncomplicated; Z86.11 Personal history of tuberculosis; Z86.59 Personal history of other mental and behavioral disorders
CPT/HCPCS: 36415; 71046-TC-FY; 80053; 85027; 86780; 87389; Q0162